=== PATIENT | female | born 1950 | race Caucasian/White ===

== ENCOUNTER 2022-05-06 08:45 | Day surgery (SDC) | payer MEDICARE ==
[2022-05-02 11:47] VITALS: BMI 25.9
[2022-05-06] MEDS ORDERED: Heparin 10,000 UNITS/ 10 ML VIAL ONE (09:41)
[2022-05-06] MEDS ORDERED: Lidocaine 1% 50ML VIAL ONE (09:41)
[2022-05-06] MEDS ORDERED: Fentanyl 100 MCG/2 ML VIAL ONE (11:52)
[2022-05-06] MEDS ORDERED: Midazolam HCl 2 mg/2 ml Vial ONE (11:52)
[2022-05-06] MEDS ORDERED: PROPOFOL 200 MG/20 ML VIAL ONE (12:03)
[2022-05-06] MEDS ORDERED: Ondansetron PF 4 MG/2 ML Vial ONE (12:03)
[2022-05-06] MEDS ORDERED: Lidocaine 1% MPF 2 ML VIAL ONE (12:03)
[2022-05-06] MEDS ORDERED: Dexamethasone 20 MG/5 ML VIAL ONE (12:03)
[2022-05-06] MEDS ORDERED: Isoproterenol 0.2 MG/1 ML AMP ONE (12:28)
== END 2022-05-06 17:10 | disposition home or self-care (01) ==
LOC: SDC 08:45
PROVIDERS: ATTEND Internal Medicine Cardiovascular Disease
PROC: 4A023FZ Measurement of Cardiac Rhythm, Percutaneous Approach (ICD-10-PCS; principal; 2022-05-06)
PROC: 4A0234Z Measurement of Cardiac Electrical Activity, Percutaneous Approach (ICD-10-PCS; 2022-05-06)
PROC: 02K83ZZ Map Conduction Mechanism, Percutaneous Approach (ICD-10-PCS; 2022-05-06)
DX: I47.1 Supraventricular tachycardia (principal); I48.0 Paroxysmal atrial fibrillation; I48.3 Typical atrial flutter; I25.10 Atherosclerotic heart disease of native coronary artery without angina pectoris; I35.1 Nonrheumatic aortic (valve) insufficiency; E03.9 Hypothyroidism, unspecified; E78.2 Mixed hyperlipidemia; I10 Essential (primary) hypertension; Z79.01 Long term (current) use of anticoagulants; Z79.890 Hormone replacement therapy; Z79.899 Other long term (current) drug therapy; Z88.1 Allergy status to other antibiotic agents; Z88.8 Allergy status to other drugs, medicaments and biological substances; Z91.040 Latex allergy status; Z95.5 Presence of coronary angioplasty implant and graft
CPT/HCPCS: 93005; 93613; 93621; 93623; 93653; J1100; J1644; J2250; J2405; J2704; J3010; J3490